=== PATIENT | female | born 1960 | race Caucasian/White ===

== ENCOUNTER 2016-12-15 23:09 | Inpatient (IN) | payer OTHER ==
[~2016-12-15] VITALS: Ht 165.1 cm; Wt 98.2 kg
[~2016-12-15 23:09] MED LIST: ADVAIR 250/501 DISK IH; ADVAIR HFA120 INHALA IH; CELEXA20 MG PO; CENTURY ULTIMA1 EAC3 PO; CRANBERRY 4001 EAC1 PO; DUONEB 2.5-0.5 M3 ML AEROSOL; GLIPIZIDE5 MG PO; GLUCOSAMINE1000 MG PO; LEVAQUIN750 MG PO; LISINOPRIL20 MG PO; METFORMIN HCL1000 MG PO; METOPROLOL SUCC50 MG PO; MONTELUKAST SOD10 MG PO; MUCINEX600 MG PO; NICODERM CQ1 EAC1 TD; PANTOPRAZOLE SO40 MG PO; PRAZOSIN HCL1 MG PO; PREDNISONE10 MG PO; PREDNISONE20 MG PO; TYLENOL REGULA325 MG PO; VENLAFAXINE HCL75 M3 PO; VENTOLIN HFA18 GM IH; ZESTORETIC 20-1 EAC2 PO
[2016-12-16 00:31] LABS: EOSINOPHIL (%) 1.4 % (0-5); EOSINOPHIL COUNT 0.1 K/uL (0-0.3); HEMATOCRIT 42.4 % (36.0-46.0); IMMATURE GRANULOCYTE (%) 0.2 % (0.0-0.7); IMMATURE GRANULOCYTE COUNT 0.1 K/uL; LYMPHOCYTE COUNT 1.4 K/uL (1.0-2.8); MCH 30.1 PG (29.0-34.0); MCHC 34.4 G/DL (30.0-36.0); MCV 87.4 FL (83-99); MEAN PLAT.VOLUME 10.8 uM^3 (9.5-12.4); MONOCYTE (%) 6.7 % (3-12); MONOCYTE COUNT 0.3 K/uL (0-0.8); NEUTROPHIL (%) 58.2 % (45-76); NEUTROPHIL COUNT 2.4 K/uL (1.8-6.4); PLATELET COUNT 51 K/uL (156-360); RBC DIS.WIDTH-CV 15.9 % (11.8-14.6); RBC DIS.WIDTH-SD 50.5 % (39-53); RED BLOOD COUNT 4.85 M/uL (3.80-5.20); WHITE BLOOD COUNT 4.2 K/uL (4.1-10.2)
[2016-12-16 00:46] LABS: CHLORIDE 110 mEq/L (99-109); POTASSIUM 3.4 mEq/L (3.7-5.4); SODIUM 145 mEq/L (136-147)
[2016-12-16 00:48] LABS: GLUCOSE 84 mg/dL (70-99)
[2016-12-16 00:49] LABS: ANION GAP 17 MEQ/L (2-14)
[2016-12-16 00:51] LABS: SERUM ETHYL ALCOHOL 186 mg/dL
[2016-12-16 00:52] LABS: GFR ESTIMATE (CALCULATED) > 59 mL/min/
[2016-12-16 00:54] LABS: UREA NITROGEN (BUN) 11 mg/dL (9-23)
[2016-12-16 00:55] LABS: SALICYLATE < 5.0 MG/DL (15-30)
[2016-12-16 04:58] LABS: CARBON DIOXIDE (BICARBONATE) 20.3 MEQ/L (20-31)
[2016-12-16 06:19] VITALS: BP 122/54
[2016-12-16 08:30] VITALS: BP 132/78
[2016-12-16 08:47] LABS: POINT-OF-CARE METER ID UU14174216; POINT-OF-CARE USER ID NUTSLF44
[2016-12-16] MEDS ORDERED: PROTONIX40 MG PO (11:07)
[2016-12-16 11:53] LABS: POINT-OF-CARE USER ID NUTSLF44
[2016-12-16 12:30] VITALS: BP 141/73
[2016-12-16 12:33] LABS: EOSINOPHIL (%) 1.3 % (0-5); HEMATOCRIT 38.6 % (36.0-46.0); IMMATURE GRANULOCYTE (%) 0.3 % (0.0-0.7); LYMPHOCYTE COUNT 0.9 K/uL (1.0-2.8); MCH 29.2 PG (29.0-34.0); MCHC 32.4 G/DL (30.0-36.0); MCV 90.2 FL (83-99); MEAN PLAT.VOLUME 11.3 uM^3 (9.5-12.4); MONOCYTE (%) 7.9 % (3-12); MONOCYTE COUNT 0.2 K/uL (0-0.8); NEUTROPHIL (%) 59.5 % (45-76); NEUTROPHIL COUNT 1.8 K/uL (1.8-6.4); NRBC (%) 0.7 /100 WBC (0-0); PLATELET COUNT 51 K/uL (156-360); RBC DIS.WIDTH-CV 16.3 % (11.8-14.6); RBC DIS.WIDTH-SD 53.5 % (39-53); RED BLOOD COUNT 4.28 M/uL (3.80-5.20)
[2016-12-16 12:37] LABS: ALKALINE PHOSPHATASE 90 IU/L (3-129); ANION GAP 13 MEQ/L (2-14); CHLORIDE 107 MEQ/L (99-109); GFR ESTIMATE (CALCULATED) > 59 mL/min/; GLUCOSE 97 mg/dL (70-99); MAGNESIUM 1.3 mg/dl (1.3-2.7); POTASSIUM 3.8 MEQ/L (3.7-5.4); SAMPLE HEMOLYSIS CHECK 0; SAMPLE ICTERIC CHECK 0; SAMPLE LIPEMIA CHECK 0; SODIUM 139 MEQ/L (136-147); TOTAL BILIRUBIN 0.7 MG/DL (0.0-1.0); UREA NITROGEN (BUN) 8 mg/dL (9-23)
[2016-12-16 16:52] LABS: POINT-OF-CARE METER ID UU13113698; POINT-OF-CARE USER ID NUTSLF44
[2016-12-16 19:19] VITALS: BP 178/86
[2016-12-16 23:15] VITALS: BP 121/71
[2016-12-17 03:54] VITALS: BP 164/93
[2016-12-17 07:08] LABS: EOSINOPHIL COUNT 0.1 K/uL (0-0.3); HEMATOCRIT 34.8 % (36.0-46.0); IMMATURE GRANULOCYTE (%) 0.6 % (0.0-0.7); LYMPHOCYTE COUNT 0.5 K/uL (1.0-2.8); MCH 29.6 PG (29.0-34.0); MCV 89.8 FL (83-99); MONOCYTE (%) 10.1 % (3-12); MONOCYTE COUNT 0.2 K/uL (0-0.8); NEUTROPHIL (%) 54.3 % (45-76); NEUTROPHIL COUNT 0.9 K/uL (1.8-6.4); RBC DIS.WIDTH-CV 15.7 % (11.8-14.6); RBC DIS.WIDTH-SD 51.3 % (39-53); RED BLOOD COUNT 3.88 M/uL (3.80-5.20)
[2016-12-17 07:11] LABS: WHITE BLOOD COUNT 1.7 K/uL (4.1-10.2)
[2016-12-17 07:17] LABS: PLAT.SUFFICIENCY DECREASED; PLATELET COUNT 36 K/uL (156-360); USER ID CL
[2016-12-17 07:20] LABS: ANION GAP 6 MEQ/L (2-14); CHLORIDE 107 MEQ/L (99-109); GFR ESTIMATE (CALCULATED) > 59 mL/min/; POTASSIUM 3.8 MEQ/L (3.7-5.4); SAMPLE HEMOLYSIS CHECK 0; SAMPLE ICTERIC CHECK 0; SAMPLE LIPEMIA CHECK 0; SODIUM 136 MEQ/L (136-147); UREA NITROGEN (BUN) 7 mg/dL (9-23)
[2016-12-17 07:22] LABS: GLUCOSE 229 mg/dL (70-99)
[2016-12-17 08:14] VITALS: BP 137/79
[2016-12-17 11:48] VITALS: BP 120/64
[2016-12-17 16:00] VITALS: BP 136/72
== END 2016-12-17 20:00 | disposition left against medical advice (07) | DRG 918 ==
LOC: EME → EDBD 23:09 → EME 23:09 → 4EAST 12-16 04:54 → EDOF 12-16 04:54 → 4EAST 12-16 04:54
PROVIDERS: Emergency Medicine; Family Medicine
DX: T38.3X2A Poisoning by insulin and oral hypoglycemic [antidiabetic] drugs, intentional self-harm, initial encounter (principal); E87.2 Acidosis; K74.60 Unspecified cirrhosis of liver; I10 Essential (primary) hypertension; J45.909 Unspecified asthma, uncomplicated; E11.9 Type 2 diabetes mellitus without complications; J44.9 Chronic obstructive pulmonary disease, unspecified; B19.20 Unspecified viral hepatitis C without hepatic coma; F10.19 Alcohol abuse with unspecified alcohol-induced disorder; Y90.6 Blood alcohol level of 120-199 mg/100 ml; F33.0 Major depressive disorder, recurrent, mild; F41.9 Anxiety disorder, unspecified; K58.9 Irritable bowel syndrome, unspecified; I34.1 Nonrheumatic mitral (valve) prolapse; F43.10 Post-traumatic stress disorder, unspecified; M19.90 Unspecified osteoarthritis, unspecified site; F17.210 Nicotine dependence, cigarettes, uncomplicated
CPT/HCPCS: 80048; 80053; 81003; 82803; 82948; 83605; 83735; 85025; 85025 91; 87040; 94640; 94640 76; 99202; 99281; 99285; C9113; G0480; J0696; J1650; J1815; J2405; J7030; J7050

== ENCOUNTER 2016-12-18 04:29 | Emergency (ER) | payer OTHER ==
[~2016-12-18] VITALS: Ht 167.6 cm; Wt 96.2 kg
[~2016-12-18 04:29] MED LIST changes: +PROTONIX40 MG PO
[2016-12-18 05:45] LABS: CHLORIDE 109 mEq/L (99-109); POTASSIUM 3.5 mEq/L (3.7-5.4); SODIUM 139 mEq/L (136-147)
[2016-12-18 05:47] LABS: GLUCOSE 149 mg/dL (70-99)
[2016-12-18 05:49] LABS: ANION GAP 8 MEQ/L (2-14)
[2016-12-18 05:55] LABS: EOSINOPHIL (%) 2.5 % (0-5); EOSINOPHIL COUNT 0.1 K/uL (0-0.3); HEMATOCRIT 36.9 % (36.0-46.0); LYMPHOCYTE COUNT 0.6 K/uL (1.0-2.8); MCH 29.4 PG (29.0-34.0); MCHC 33.9 G/DL (30.0-36.0); MCV 86.8 FL (83-99); MONOCYTE (%) 8.4 % (3-12); MONOCYTE COUNT 0.2 K/uL (0-0.8); NEUTROPHIL COUNT 1.2 K/uL (1.8-6.4); RBC DIS.WIDTH-CV 15.5 % (11.8-14.6); RBC DIS.WIDTH-SD 48.4 % (39-53); RED BLOOD COUNT 4.25 M/uL (3.80-5.20)
[2016-12-18 05:57] LABS: MEAN PLAT.VOLUME 10.6 uM^3 (9.5-12.4); PLATELET COUNT 52 K/uL (156-360)
[2016-12-18 06:18] LABS: TOTAL BILIRUBIN 0.5 mg/dL (0.0-1.0)
[2016-12-18 06:20] LABS: ALKALINE PHOSPHATASE 103 IU/L (3-129); GFR ESTIMATE (CALCULATED) > 59 mL/min/
[2016-12-18 06:21] LABS: UREA NITROGEN (BUN) 7 mg/dL (9-23)
[2016-12-18 06:22] LABS: DIRECT BILIRUBIN 0.3 mg/dL (0.0-0.3)
[2016-12-18 06:32] LABS: SERUM ETHYL ALCOHOL 12 mg/dL
[2016-12-18 07:12] VITALS: BP 157/94
== END 2016-12-18 07:14 | disposition home or self-care (01) ==
LOC: EME 04:29
DX: R53.1 Weakness (principal); D70.9 Neutropenia, unspecified; E11.9 Type 2 diabetes mellitus without complications; Z79.84 Long term (current) use of oral hypoglycemic drugs; J44.9 Chronic obstructive pulmonary disease, unspecified; K74.60 Unspecified cirrhosis of liver; B18.2 Chronic viral hepatitis C; F17.200 Nicotine dependence, unspecified, uncomplicated
CPT/HCPCS: 80048; 80076; 85025; 85027; 99281; 99285; G0480; J7644

== ENCOUNTER 2017-11-07 20:57 | Inpatient (IN) | payer OTHER ==
[~2017-11-07] VITALS: Ht 170.2 cm; Wt 88.3 kg
[2017-11-08 00:37] LABS: EOSINOPHIL (%) 1.6 % (0-5); HEMATOCRIT 38.3 % (36.0-46.0); IMMATURE GRANULOCYTE (%) 0.4 % (0.0-0.7); INSTRUMENT ABS NEUTROPHIL CT 1.6 K/uL; LYMPHOCYTE COUNT 0.7 K/uL (1.0-2.8); MCH 30.5 PG (29.0-34.0); MCHC 33.2 G/DL (30.0-36.0); MCV 91.8 FL (83-99); MONOCYTE (%) 6.1 % (3-12); MONOCYTE COUNT 0.2 K/uL (0-0.8); NEUTROPHIL (%) 64.6 % (45-76); NEUTROPHIL COUNT 1.6 K/uL (1.8-6.4); RBC DIS.WIDTH-CV 15.1 % (11.8-14.6); RBC DIS.WIDTH-SD 51.4 % (39-53); RED BLOOD COUNT 4.17 M/uL (3.80-5.20); WHITE BLOOD COUNT 2.5 K/uL (4.1-10.2)
[2017-11-08 00:47] LABS: CHLORIDE 111 mEq/L (99-109); POTASSIUM 3.9 mEq/L (3.7-5.4); SODIUM 141 mEq/L (136-147)
[2017-11-08 00:48] LABS: MAGNESIUM 1.7 mg/dL (1.3-2.7)
[2017-11-08 00:49] LABS: GLUCOSE 96 mg/dL (70-99)
[2017-11-08 00:50] LABS: ANION GAP 8 MEQ/L (2-14)
[2017-11-08 00:51] LABS: TOTAL BILIRUBIN 0.5 mg/dL (0.0-1.0)
[2017-11-08 00:52] LABS: SERUM ETHYL ALCOHOL 63 mg/dL
[2017-11-08 00:53] LABS: GFR ESTIMATE (CALCULATED) > 59 mL/min/
[2017-11-08 00:54] LABS: ALKALINE PHOSPHATASE 71 IU/L (3-129)
[2017-11-08 00:55] LABS: UREA NITROGEN (BUN) 7 mg/dL (9-23)
[2017-11-08 00:56] LABS: SALICYLATE < 5.0 MG/DL (15-30)
[2017-11-08 01:19] LABS: HEMATOLOGY COMMENT 1 SN; IMM.PLATELET FRACTION 3.7 (1-7); PLAT.SUFFICIENCY DECREASED; PLATELET COUNT UNABLE TO REPORT K/uL (156-360)
[2017-11-08 05:05] LABS: ADD MIUA? YES; BILIRUBIN NEGATIVE; BLOOD NEGATIVE; COLOR YELLOW ((YELLOW)); GLUCOSE (STRIP) NEGATIVE; KETONES NEGATIVE; LEUKOCYTES LARGE; NITRITE POSITIVE; PROTEIN (STRIP) NEGATIVE; SPECIFIC GRAVITY 1.015 (1.000-1.030)
[2017-11-08 05:09] LABS: BACTERIA 2+ /HPF; EPITHELIAL CELLS RARE /HPF; MUCUS TRACE /LPF; UCUL ADDED? YES; WHITE BLOOD CELLS TNTC /HPF (0-5)
[2017-11-08 05:14] LABS: ADD MEDTOX COMMENT Y; AMPHETAMINE NEGATIVE (500 ng/mL); BARBITURATES NEGATIVE (200 ng/mL); BENZODIAZEPINES PRESUMPTIVE POSITIVE (150 ng/mL); COCAINE NEGATIVE (150 ng/mL); INTERNAL CONTROLS VALID? YES; METHADONE NEGATIVE (200 ng/mL); METHAMPHETAMINE NEGATIVE (500 ng/mL); OPIATES (MORPHINE) NEGATIVE (100 ng/mL); OXYCODONE NEGATIVE (100 ng/mL); PHENCYCLIDINE NEGATIVE (25 ng/mL); PROPOXYPHENE NEGATIVE (300 ng/mL); THC CANNABINOIDS PRESUMPTIVE POSITIVE (50 ng/mL); TRICYCLIC ANTIDEPRESSANTS NEGATIVE (300 ng/mL)
[2017-11-08 05:32] VITALS: BP 162/86
[2017-11-08 06:35] LABS: BENZODIAZEPINES QUANT VALUE 0 NG/ML; BENZODIAZEPINES, URINE SCREEN Negative (200 ng/mL)
[2017-11-09 06:48] LABS: POINT-OF-CARE METER ID UU13113830; POINT-OF-CARE USER ID ENVTLS63
[2017-11-10 06:24] LABS: POINT-OF-CARE METER ID UU13113830
[2017-11-10 07:55] VITALS: BP 114/55
[2017-11-10 16:16] VITALS: BP 118/66
[2017-11-11 06:14] LABS: POINT-OF-CARE METER ID UU13113830
[2017-11-11 07:38] VITALS: BP 101/59
[2017-11-11 15:40] VITALS: BP 117/68
[2017-11-12 06:10] LABS: POINT-OF-CARE METER ID UU13113830; POINT-OF-CARE USER ID BHSSMG
[2017-11-12 07:46] VITALS: BP 101/55
[2017-11-12 15:14] VITALS: BP 107/61
[2017-11-12 17:04] LABS: EOSINOPHIL COUNT 0.1 K/uL (0-0.3); HEMATOCRIT 32.6 % (36.0-46.0); INSTRUMENT ABS NEUTROPHIL CT 1.3 K/uL; LYMPHOCYTE COUNT 0.5 K/uL (1.0-2.8); MCH 30.5 PG (29.0-34.0); MCHC 32.5 G/DL (30.0-36.0); MCV 93.9 FL (83-99); MONOCYTE (%) 9.5 % (3-12); MONOCYTE COUNT 0.2 K/uL (0-0.8); NEUTROPHIL (%) 63.1 % (45-76); NEUTROPHIL COUNT 1.3 K/uL (1.8-6.4); RBC DIS.WIDTH-CV 14.8 % (11.8-14.6); RBC DIS.WIDTH-SD 50.9 % (39-53); RED BLOOD COUNT 3.47 M/uL (3.80-5.20)
[2017-11-12 17:06] LABS: INTER. NORMALIZED RATIO 1.2; PROTHROMBIN TIME 13.4 SEC (10.2-12.9)
[2017-11-12 17:07] LABS: ANION GAP 8 MEQ/L (2-14); CHLORIDE 105 MEQ/L (99-109); SAMPLE HEMOLYSIS CHECK 0; SAMPLE ICTERIC CHECK 0; SAMPLE LIPEMIA CHECK 0; SODIUM 139 MEQ/L (136-147); TOTAL BILIRUBIN 0.7 MG/DL (0.0-1.0)
[2017-11-12 17:09] LABS: PTT 31.3 SEC (25-37)
[2017-11-12 17:13] LABS: ALKALINE PHOSPHATASE 61 IU/L (3-129); GFR ESTIMATE (CALCULATED) > 59 mL/min/; GLUCOSE 143 mg/dL (70-99); UREA NITROGEN (BUN) 8 mg/dL (9-23)
[2017-11-12 17:24] LABS: HEMATOLOGY COMMENT 1 SN; IMM.PLATELET FRACTION 3.7 (1-7); MEAN PLAT.VOLUME 10.7 uM^3 (9.5-12.4); PLAT.SUFFICIENCY DECREASED
[2017-11-12 17:25] LABS: PLATELET COUNT 44 K/uL (156-360)
[2017-11-12 18:59] LABS: Estimated Average Glucose 137 mg/dL (70-123); HEMOGLOBIN A1c (GLYCOHEMOGLOB) 6.4 % HGB (Below 5.7)
[2017-11-13 06:05] LABS: POINT-OF-CARE METER ID UU13113830; POINT-OF-CARE USER ID ENVTLS63
[2017-11-13 07:39] VITALS: BP 146/81
[2017-11-13] MEDS ORDERED: BUPROPION HCL100 M1 PO (08:51)
[2017-11-13 09:03] VITALS: BP 146/81
[2017-11-13] MEDS ORDERED: PERCOCET 5/31 TABLET PO (13:16)
[2017-11-13] MEDS ORDERED: ZOFRAN4 MG PO (13:16)
[2017-11-13] MEDS ORDERED: TORADOL30 MG/ML IM (13:17)
[2017-11-14] MEDS ORDERED: LOVENOX40 MG/0.4 SC (08:56)
[2017-11-14] MEDS ORDERED: HYDROCODON-ACE1 EAC7 PO (08:56)
== END 2017-11-13 11:55 | DRG 881 ==
LOC: EME → EDBD 20:57 → 1WEST 11-08 03:53 → EDOF 11-08 03:53 → ENRESERV 11-08 04:41 → 1WEST 11-08 05:24
PROVIDERS: Emergency Medicine; Internal Medicine; Psychiatry & Neurology Psychiatry
DX: F43.21 Adjustment disorder with depressed mood (principal); R45.851 Suicidal ideations; F33.2 Major depressive disorder, recurrent severe without psychotic features; S82.842A Displaced bimalleolar fracture of left lower leg, initial encounter for closed fracture; S09.90XA Unspecified injury of head, initial encounter; W10.1XXA Fall (on)(from) sidewalk curb, initial encounter; F41.9 Anxiety disorder, unspecified; F60.9 Personality disorder, unspecified; F10.229 Alcohol dependence with intoxication, unspecified; Y90.3 Blood alcohol level of 60-79 mg/100 ml; D61.818 Other pancytopenia; B18.2 Chronic viral hepatitis C; K76.6 Portal hypertension; K74.60 Unspecified cirrhosis of liver; I85.10 Secondary esophageal varices without bleeding; E11.9 Type 2 diabetes mellitus without complications; I34.1 Nonrheumatic mitral (valve) prolapse; J43.9 Emphysema, unspecified; I10 Essential (primary) hypertension; R82.71 Bacteriuria; Z22.39 Carrier of other specified bacterial diseases; K21.9 Gastro-esophageal reflux disease without esophagitis; G47.33 Obstructive sleep apnea (adult) (pediatric); R47.81 Slurred speech; Z87.01 Personal history of pneumonia (recurrent); F17.210 Nicotine dependence, cigarettes, uncomplicated
CPT/HCPCS: 70450; 73610; 80053; 81003; 82607; 82746; 82948; 83036; 83735; 84443; 84999; 85025; 85610; 85730; 86850; 86900; 86901; 87077; 87086; 87186; 90839; 94640; 94640 76; 97150 GO; 97165 GO; 99202; 99281; 99285; G0480; J0131; J1100; J1170; J1630; J1885; J2060; J2250; J2405; J3010; P9035

== ENCOUNTER 2017-11-13 12:30 | Inpatient (IN) | payer OTHER ==
[~2017-11-13] VITALS: Ht 170.2 cm; Wt 90.9 kg
[~2017-11-13 12:30] MED LIST changes: +BUPROPION HCL100 M1 PO
[2017-11-13 12:44] VITALS: BP 133/81
[2017-11-13] MEDS ORDERED: ZOFRAN4 MG PO (13:16)
[2017-11-13] MEDS ORDERED: PERCOCET 5/31 TABLET PO (13:16)
[2017-11-13] MEDS ORDERED: TORADOL30 MG/ML IM (13:17)
[2017-11-13 23:03] VITALS: BP 126/71
[2017-11-14 04:07] VITALS: BP 123/71
[2017-11-14 08:23] VITALS: BP 110/60
[2017-11-14] MEDS ORDERED: LOVENOX40 MG/0.4 SC (08:56)
[2017-11-14] MEDS ORDERED: HYDROCODON-ACE1 EAC7 PO (08:56)
[2017-11-14 11:41] VITALS: BP 122/78
[2017-11-14 16:10] VITALS: BP 122/69
[2017-11-14 23:18] VITALS: BP 129/73
[2017-11-15 15:41] VITALS: BP 139/82
[2017-11-15 23:03] VITALS: BP 122/64
[2017-11-16 08:30] VITALS: BP 140/88
[2017-11-16 17:14] VITALS: BP 138/76
[2017-11-16 23:05] VITALS: BP 118/72
[2017-11-17 08:23] VITALS: BP 116/73
[2017-11-18 00:13] VITALS: BP 121/76
[2017-11-18 08:36] VITALS: BP 136/85
[2017-11-18 16:02] VITALS: BP 133/84
[2017-11-19 00:03] VITALS: BP 134/66
[2017-11-19 07:51] VITALS: BP 131/75
[2017-11-19 11:13] VITALS: BP 122/66
[2017-11-19 16:06] VITALS: BP 123/74
[2017-11-19 23:31] VITALS: BP 132/64
[2017-11-20 08:11] VITALS: BP 116/62
[2017-11-20 09:53] LABS: HEMATOCRIT 33.4 % (36.0-46.0); HEMOGLOBIN 10.8 G/DL (11.9-15.5); MCH 29.4 PG (29.0-34.0); MCHC 32.3 G/DL (30.0-36.0); RBC DIS.WIDTH-CV 14.4 % (11.8-14.6); RBC DIS.WIDTH-SD 48.2 % (39-53); RED BLOOD COUNT 3.67 M/uL (3.80-5.20)
[2017-11-20 09:54] LABS: PLATELET COUNT 67 K/uL (156-360)
[2017-11-20 09:55] LABS: WHITE BLOOD COUNT 1.8 K/uL (4.1-10.2)
[2017-11-20 10:00] LABS: CHLORIDE 108 MEQ/L (99-109); CREATININE 0.5 MG/DL (0.6-1.3); GFR ESTIMATE (CALCULATED) > 59 mL/min/; GLUCOSE 114 mg/dL (70-99); POTASSIUM 4.1 MEQ/L (3.7-5.4); SODIUM 139 MEQ/L (136-147); UREA NITROGEN (BUN) 12 mg/dL (9-23)
[2017-11-20 11:43] VITALS: BP 130/75
[2017-11-20 18:27] VITALS: BP 166/73
[2017-11-20 20:22] VITALS: BP 142/90
[2017-11-21 00:12] VITALS: BP 128/60
[2017-11-21 04:15] VITALS: BP 131/70
[2017-11-21 07:28] VITALS: BP 120/62
[2017-11-21 11:31] VITALS: BP 129/72
[2017-11-21 15:00] VITALS: BP 122/66
== END 2017-11-21 15:49 | DRG 494 ==
LOC: SDC 12:30 → ENRESERV 15:47 → 2SOUTH 15:55 → 3EAST 15:55 → ENRESERV 16:35 → 3EAST 17:40
PROVIDERS: Orthopaedic Surgery; Physician Assistant
DX: S82.852A Displaced trimalleolar fracture of left lower leg, initial encounter for closed fracture (principal); D69.6 Thrombocytopenia, unspecified; M81.0 Age-related osteoporosis without current pathological fracture; F32.9 Major depressive disorder, single episode, unspecified; K74.60 Unspecified cirrhosis of liver; B18.2 Chronic viral hepatitis C; I10 Essential (primary) hypertension; K21.9 Gastro-esophageal reflux disease without esophagitis; I34.1 Nonrheumatic mitral (valve) prolapse; W10.9XXA Fall (on) (from) unspecified stairs and steps, initial encounter; F17.200 Nicotine dependence, unspecified, uncomplicated; F10.20 Alcohol dependence, uncomplicated; J44.9 Chronic obstructive pulmonary disease, unspecified; E11.9 Type 2 diabetes mellitus without complications
CPT/HCPCS: 73600; 73610; 76000; 80048; 82948; 85027; 86850; 86900; 86901; 86965; 94640; 94640 76; C1713; J0131; J0330; J0690; J1100; J1170; J1650; J1815; J2405; J2765; J3010; P9035

== ENCOUNTER 2018-01-04 18:38 | Inpatient (IN) | payer OTHER ==
[~2018-01-04] VITALS: Ht 180.3 cm; Wt 99.3 kg
[~2018-01-04 18:38] MED LIST changes: +HYDROCODON-ACE1 EAC7 PO; +LOVENOX40 MG/0.4 SC; +PERCOCET 5/31 TABLET PO; +TORADOL30 MG/ML IM; +ZOFRAN4 MG PO
[2018-01-04 19:32] LABS: HEMOGLOBIN 12.5 G/DL (11.9-15.5); MCH 27.4 PG (29.0-34.0); MCHC 31.3 G/DL (30.0-36.0); MCV 87.7 FL (83-99); PLATELET COUNT 58 K/uL (156-360); RBC DIS.WIDTH-CV 14.5 % (11.8-14.6); RBC DIS.WIDTH-SD 46.2 % (39-53); RED BLOOD COUNT 4.56 M/uL (3.80-5.20); WHITE BLOOD COUNT 3.6 K/uL (4.1-10.2)
[2018-01-04 19:42] LABS: CHLORIDE 108 mEq/L (99-109); POTASSIUM 3.7 mEq/L (3.7-5.4); SODIUM 138 mEq/L (136-147)
[2018-01-04 19:44] LABS: GLUCOSE 129 mg/dL (70-99); TOTAL PROTEIN 7.4 g/dL (6.4-8.3)
[2018-01-04 19:46] LABS: TOTAL BILIRUBIN 0.8 mg/dL (0.0-1.0)
[2018-01-04 19:48] LABS: ALKALINE PHOSPHATASE 126 IU/L (3-129); CREATININE 0.7 mg/dL (0.6-1.3); GFR ESTIMATE (CALCULATED) > 59 mL/min/
[2018-01-04 19:49] LABS: UREA NITROGEN (BUN) 10 mg/dL (9-23)
[2018-01-04 19:50] LABS: AST (GOT) 57 IU/L (2-34)
[2018-01-04 19:51] LABS: ALT (GPT) 102 IU/L (3-49); LIPASE 26 U/L (1.0-51.0)
[2018-01-04 20:42] LABS: DIRECT BILIRUBIN 0.4 mg/dL (0.0-0.3)
[2018-01-04 23:46] LABS: INTER. NORMALIZED RATIO 1.2
[2018-01-04] MEDS ORDERED: ADVAIR HFA120 INHAL1 IH (23:46)
[2018-01-04] MEDS ORDERED: ESTER-C 1,0001 EACH PO (23:47)
[2018-01-04 23:49] LABS: PTT 31.3 SEC (25-37)
[2018-01-05 01:53] LABS: APPEARANCE CLEAR ((CLEAR)); BILIRUBIN NEGATIVE; BLOOD NEGATIVE; COLOR YELLOW ((YELLOW)); GLUCOSE (STRIP) NEGATIVE; KETONES NEGATIVE; LEUKOCYTES NEGATIVE; NITRITE NEGATIVE; PROTEIN (STRIP) NEGATIVE
[2018-01-05 02:05] VITALS: BP 118/74
[2018-01-05 02:05] LABS: CREATINE KINASE 98 IU/L (1-294)
[2018-01-05 07:15] LABS: BASOPHIL (%) 0.4 % (0-1); EOSINOPHIL (%) 2.1 % (0-5); EOSINOPHIL COUNT 0.1 K/uL (0-0.3); HEMATOCRIT 33.4 % (36.0-46.0); IMMATURE GRANULOCYTE (%) 0.4 % (0.0-0.7); LYMPHOCYTE COUNT 0.5 K/uL (1.0-2.8); MCH 27.9 PG (29.0-34.0); MCHC 31.4 G/DL (30.0-36.0); MCV 88.8 FL (83-99); MONOCYTE (%) 10.2 % (3-12); MONOCYTE COUNT 0.2 K/uL (0-0.8); NEUTROPHIL (%) 63.9 % (45-76); NEUTROPHIL COUNT 1.5 K/uL (1.8-6.4); RBC DIS.WIDTH-CV 14.6 % (11.8-14.6); RBC DIS.WIDTH-SD 46.7 % (39-53); RED BLOOD COUNT 3.76 M/uL (3.80-5.20); WHITE BLOOD COUNT 2.4 K/uL (4.1-10.2)
[2018-01-05 07:17] LABS: INTER. NORMALIZED RATIO 1.3
[2018-01-05 07:19] LABS: HEMOGLOBIN 10.5 G/DL (11.9-15.5)
[2018-01-05 07:21] LABS: PTT 30.8 SEC (25-37)
[2018-01-05 07:33] LABS: IMM.PLATELET FRACTION 3.8 (1-7); PLAT.SUFFICIENCY DECREASED; PLATELET COUNT 41 K/uL (156-360)
[2018-01-05 07:47] LABS: ALBUMIN 3.1 G/DL (3.2-4.8); ALKALINE PHOSPHATASE 80 IU/L (3-129); ALT (GPT) 63 IU/L (3-49); AST (GOT) 42 IU/L (2-34); CHLORIDE 109 MEQ/L (99-109); CREATININE 0.7 MG/DL (0.6-1.3); GFR ESTIMATE (CALCULATED) > 59 mL/min/; GLUCOSE 187 mg/dL (70-99); POTASSIUM 4.3 MEQ/L (3.7-5.4); SODIUM 138 MEQ/L (136-147); TOTAL BILIRUBIN 0.8 MG/DL (0.0-1.0); TOTAL PROTEIN 5.3 G/DL (6.4-8.3); UREA NITROGEN (BUN) 11 mg/dL (9-23)
[2018-01-05 11:33] VITALS: BP 111/75
[2018-01-05 16:11] VITALS: BP 100/57
[2018-01-05 19:34] VITALS: BP 101/57
[2018-01-05 23:45] VITALS: BP 103/52
[2018-01-06] VITALS (7 sets, daily range): BP systolic 102–139; BP diastolic 50–89
[2018-01-06 06:52] LABS: HEMATOCRIT 36.2 % (36.0-46.0); HEMOGLOBIN 11.5 G/DL (11.9-15.5); MCH 28.1 PG (29.0-34.0); MCHC 31.8 G/DL (30.0-36.0); MCV 88.5 FL (83-99); RBC DIS.WIDTH-CV 14.7 % (11.8-14.6); RBC DIS.WIDTH-SD 47.6 % (39-53); RED BLOOD COUNT 4.09 M/uL (3.80-5.20)
[2018-01-06 07:12] LABS: ALBUMIN 3.3 G/DL (3.2-4.8); ALKALINE PHOSPHATASE 81 IU/L (3-129); ALT (GPT) 69 IU/L (3-49); AST (GOT) 45 IU/L (2-34); CHLORIDE 105 MEQ/L (99-109); CREATININE 0.7 MG/DL (0.6-1.3); GFR ESTIMATE (CALCULATED) > 59 mL/min/; GLUCOSE 165 mg/dL (70-99); POTASSIUM 4.1 MEQ/L (3.7-5.4); SODIUM 135 MEQ/L (136-147); TOTAL BILIRUBIN 0.8 MG/DL (0.0-1.0); UREA NITROGEN (BUN) 10 mg/dL (9-23)
[2018-01-06 07:31] LABS: IMM.PLATELET FRACTION 3.7 (1-7); PLAT.SUFFICIENCY DECREASED; PLATELET COUNT 41 K/uL (156-360)
[2018-01-07 06:37] LABS: BASOPHIL (%) 0.4 % (0-1); EOSINOPHIL (%) 4.3 % (0-5); EOSINOPHIL COUNT 0.1 K/uL (0-0.3); HEMATOCRIT 34.8 % (36.0-46.0); HEMOGLOBIN 10.9 G/DL (11.9-15.5); LYMPHOCYTE (%) 19.7 % (15-42); LYMPHOCYTE COUNT 0.5 K/uL (1.0-2.8); MCH 27.3 PG (29.0-34.0); MCHC 31.3 G/DL (30.0-36.0); MCV 87.2 FL (83-99); MONOCYTE (%) 9.9 % (3-12); MONOCYTE COUNT 0.2 K/uL (0-0.8); NEUTROPHIL (%) 65.7 % (45-76); NEUTROPHIL COUNT 1.5 K/uL (1.8-6.4); RBC DIS.WIDTH-CV 14.7 % (11.8-14.6); RBC DIS.WIDTH-SD 47.5 % (39-53); RED BLOOD COUNT 3.99 M/uL (3.80-5.20); WHITE BLOOD COUNT 2.3 K/uL (4.1-10.2)
[2018-01-07 07:03] LABS: CHLORIDE 103 MEQ/L (99-109); CREATININE 0.6 MG/DL (0.6-1.3); GFR ESTIMATE (CALCULATED) > 59 mL/min/; GLUCOSE 152 mg/dL (70-99); POTASSIUM 4.2 MEQ/L (3.7-5.4); SODIUM 138 MEQ/L (136-147); UREA NITROGEN (BUN) 9 mg/dL (9-23)
[2018-01-07 07:33] LABS: IMM.PLATELET FRACTION 4.9 (1-7); PLAT.SUFFICIENCY DECREASED; PLATELET COUNT 43 K/uL (156-360)
[2018-01-07 07:35] VITALS: BP 110/59
[2018-01-07 16:27] VITALS: BP 107/67
[2018-01-08 07:25] VITALS: BP 118/70
[2018-01-08 15:00] VITALS: BP 122/80
[2018-01-09 07:42] VITALS: BP 116/63
[2018-01-09] MEDS ORDERED: ALDACTONE100 MG PO (08:56)
[2018-01-09] MEDS ORDERED: XIFAXAN550 MG PO (08:56)
[2018-01-09] MEDS ORDERED: FUROSEMIDE40 MG PO (08:56)
[2018-01-09] MEDS ORDERED: NADOLOL40 MG PO (08:56)
[2018-01-09] MEDS ORDERED: METFORMIN HCL1000 MG PO (08:56)
[2018-01-09] MEDS ORDERED: LACTULOSE10 GM/151 PO (09:02)
[2018-01-09] MEDS ORDERED: DUONEB 2.5-0.5 M3 ML AEROSOL (11:59)
[2018-01-09] MEDS ORDERED: ADVAIR HFA120 INHAL1 IH (11:59)
== END 2018-01-09 15:25 | disposition home or self-care (01) | DRG 432 ==
LOC: EXP 18:38 → EME 18:38 → 5EAST 01-05 00:40 → EDOF 01-05 00:40 → ENRESERV 01-05 00:47 → 5EAST 01-05 01:53
PROVIDERS: Hospitalist; Nurse Practitioner Family; Student in an Organized Health Care Education/Training Program
DX: K70.31 Alcoholic cirrhosis of liver with ascites (principal); I81 Portal vein thrombosis; J44.9 Chronic obstructive pulmonary disease, unspecified; K72.90 Hepatic failure, unspecified without coma; K76.6 Portal hypertension; B18.2 Chronic viral hepatitis C; K57.30 Diverticulosis of large intestine without perforation or abscess without bleeding; S82.852D Displaced trimalleolar fracture of left lower leg, subsequent encounter for closed fracture with routine healing; K21.0 Gastro-esophageal reflux disease with esophagitis; I85.10 Secondary esophageal varices without bleeding; T36.1X5A Adverse effect of cephalosporins and other beta-lactam antibiotics, initial encounter; E11.9 Type 2 diabetes mellitus without complications; D61.818 Other pancytopenia; I10 Essential (primary) hypertension; K42.9 Umbilical hernia without obstruction or gangrene; E77.8 Other disorders of glycoprotein metabolism; G89.29 Other chronic pain; F10.21 Alcohol dependence, in remission; I34.1 Nonrheumatic mitral (valve) prolapse; F32.9 Major depressive disorder, single episode, unspecified; F17.210 Nicotine dependence, cigarettes, uncomplicated; M19.079 Primary osteoarthritis, unspecified ankle and foot; K59.00 Constipation, unspecified; Z59.0 Homelessness; Z99.3 Dependence on wheelchair; Z91.19 Patient's noncompliance with other medical treatment and regimen; Z91.14 Patient's other noncompliance with medication regimen; Z83.3 Family history of diabetes mellitus; Z68.30 Body mass index [BMI] 30.0-30.9, adult
CPT/HCPCS: 71275; 73610; 74177; 80048; 80053; 81003; 82140; 82248; 82550; 82948; 83605; 83690; 85025; 85027; 85610; 85730; 90686; 94640; 94640 76; 94760; 99202; 99281; 99285; J1170; J1200; J1815; J2270; J2405; J3010; J7120

== ENCOUNTER 2018-01-14 21:33 | Emergency (ER) | payer OTHER ==
[~2018-01-14] VITALS: Ht 167.6 cm; Wt 90.0 kg
[~2018-01-14 21:33] MED LIST changes: +ADVAIR HFA120 INHAL1 IH; +ALDACTONE100 MG PO; +ESTER-C 1,0001 EACH PO; +FUROSEMIDE40 MG PO; +LACTULOSE10 GM/151 PO; +NADOLOL40 MG PO; +XIFAXAN550 MG PO
[2018-01-14 21:51] LABS: HEMATOCRIT 39.1 % (36.0-46.0); HEMOGLOBIN 12.8 G/DL (11.9-15.5); MCH 27.3 PG (29.0-34.0); MCHC 32.7 G/DL (30.0-36.0); MCV 83.4 FL (83-99); RBC DIS.WIDTH-CV 14.9 % (11.8-14.6); RBC DIS.WIDTH-SD 45.2 % (39-53); RED BLOOD COUNT 4.69 M/uL (3.80-5.20); WHITE BLOOD COUNT 6.3 K/uL (4.1-10.2)
[2018-01-14 21:55] LABS: PLATELET COUNT 73 K/uL (156-360)
[2018-01-14 22:14] LABS: CHLORIDE 103 MEQ/L (99-109); CREATININE 0.8 MG/DL (0.6-1.3); GFR ESTIMATE (CALCULATED) > 59 mL/min/; GLUCOSE 161 mg/dL (70-99); SODIUM 131 MEQ/L (136-147); UREA NITROGEN (BUN) 15 mg/dL (9-23)
[2018-01-15] MEDS ORDERED: PROVENTIL HFA6.7 GM IH (01:55)
[2018-01-15] MEDS ORDERED: SPACE CHAMBER1 EACH MC (01:55)
[2018-01-15] MEDS ORDERED: PREDNISONE20 MG PO (01:56)
[2018-01-15 02:17] VITALS: BP 104/67
== END 2018-01-15 02:18 | disposition home or self-care (01) ==
LOC: EME 21:33
PROVIDERS: Emergency Medicine Emergency Medical Services
DX: J44.1 Chronic obstructive pulmonary disease with (acute) exacerbation (principal); J06.9 Acute upper respiratory infection, unspecified; E11.9 Type 2 diabetes mellitus without complications; B19.20 Unspecified viral hepatitis C without hepatic coma; K74.60 Unspecified cirrhosis of liver; I34.1 Nonrheumatic mitral (valve) prolapse; F41.9 Anxiety disorder, unspecified; F17.200 Nicotine dependence, unspecified, uncomplicated; Z88.5 Allergy status to narcotic agent; Z88.6 Allergy status to analgesic agent
CPT/HCPCS: 71045; 80048; 85027; 94644; 99281; 99285; J1100; J3475; J7040; J7644

== ENCOUNTER 2018-01-22 16:58 | Inpatient (IN) | payer OTHER ==
[~2018-01-22] VITALS: Ht 167.6 cm; Wt 69.5 kg
[~2018-01-22 16:58] MED LIST changes: +PROVENTIL HFA6.7 GM IH; +SPACE CHAMBER1 EACH MC
[2018-01-22 17:40] LABS: BASOPHIL (%) 0.2 % (0-1); EOSINOPHIL (%) 0.1 % (0-5); HEMATOCRIT 38.6 % (36.0-46.0); HEMOGLOBIN 13.1 G/DL (11.9-15.5); IMMATURE GRANULOCYTE (%) 1.3 % (0.0-0.7); LYMPHOCYTE COUNT 0.7 K/uL (1.0-2.8); MCH 27.5 PG (29.0-34.0); MCHC 33.9 G/DL (30.0-36.0); MCV 81.1 FL (83-99); MONOCYTE (%) 6.6 % (3-12); MONOCYTE COUNT 0.8 K/uL (0-0.8); NEUTROPHIL (%) 85.8 % (45-76); NEUTROPHIL COUNT 9.7 K/uL (1.8-6.4); PLATELET COUNT 86 K/uL (156-360); RBC DIS.WIDTH-CV 14.6 % (11.8-14.6); RBC DIS.WIDTH-SD 42.7 % (39-53); RED BLOOD COUNT 4.76 M/uL (3.80-5.20); WHITE BLOOD COUNT 11.3 K/uL (4.1-10.2)
[2018-01-22 17:50] LABS: ALBUMIN 3.2 g/dL (3.2-4.8); CHLORIDE 98 mEq/L (99-109); POTASSIUM 4.5 mEq/L (3.7-5.4); SODIUM 128 mEq/L (136-147)
[2018-01-22 17:51] LABS: MAGNESIUM 1.7 mg/dL (1.3-2.7)
[2018-01-22 17:53] LABS: GLUCOSE 281 mg/dL (70-99); TOTAL PROTEIN 7.1 g/dL (6.4-8.3)
[2018-01-22 17:55] LABS: TOTAL BILIRUBIN 1.8 mg/dL (0.0-1.0)
[2018-01-22 17:56] LABS: ALKALINE PHOSPHATASE 93 IU/L (3-129); CREATININE 0.8 mg/dL (0.6-1.3); GFR ESTIMATE (CALCULATED) > 59 mL/min/
[2018-01-22 17:57] LABS: INTER. NORMALIZED RATIO 1.4
[2018-01-22 17:58] LABS: AST (GOT) 17 IU/L (2-34); UREA NITROGEN (BUN) 11 mg/dL (9-23)
[2018-01-22 17:59] LABS: ALT (GPT) 30 IU/L (3-49); PTT 24.9 SEC (25-37)
[2018-01-22 18:00] LABS: LIPASE 37 U/L (1.0-51.0)
[2018-01-22 18:01] LABS: TROP-I INTERPRETATION NEGATIVE; TROPONIN-I < 0.01 ng/mL (0.0-0.30)
[2018-01-22] MEDS ORDERED: WELLBUTRIN SR100 MG PO (19:39)
[2018-01-22] MEDS ORDERED: ALDACTONE100 MG PO (19:40)
[2018-01-22] MEDS ORDERED: LASIX40 MG PO (19:40)
[2018-01-22] MEDS ORDERED: CORGARD40 MG PO (19:41)
[2018-01-22] MEDS ORDERED: METFORMIN HCL500 MG PO (19:41)
[2018-01-23 01:53] VITALS: BP 136/71
[2018-01-23 04:11] LABS: APPEARANCE CLEAR ((CLEAR)); BILIRUBIN NEGATIVE; BLOOD NEGATIVE; COLOR YELLOW ((YELLOW)); GLUCOSE (STRIP) >=500; KETONES 20; LEUKOCYTES NEGATIVE; NITRITE NEGATIVE; PROTEIN (STRIP) NEGATIVE; SPECIFIC GRAVITY 1.032 (1.000-1.030); UCUL ADDED? NO; UROBILINOGEN 0.2 MG/DL (0.2-1.0)
[2018-01-23 05:48] VITALS: BP 124/75
[2018-01-23 06:15] LABS: BASOPHIL (%) 0 % (0-1); EOSINOPHIL (%) 0 % (0-5); HEMATOCRIT 34.6 % (36.0-46.0); HEMOGLOBIN 11.3 G/DL (11.9-15.5); IMMATURE GRANULOCYTE (%) 1.1 % (0.0-0.7); LYMPHOCYTE (%) 6.4 % (15-42); LYMPHOCYTE COUNT 0.4 K/uL (1.0-2.8); MCH 26.9 PG (29.0-34.0); MCHC 32.7 G/DL (30.0-36.0); MCV 82.4 FL (83-99); MONOCYTE (%) 1.8 % (3-12); MONOCYTE COUNT 0.1 K/uL (0-0.8); NEUTROPHIL (%) 90.7 % (45-76); PLATELET COUNT 66 K/uL (156-360); RBC DIS.WIDTH-CV 14.5 % (11.8-14.6); RBC DIS.WIDTH-SD 43.4 % (39-53); WHITE BLOOD COUNT 5.5 K/uL (4.1-10.2)
[2018-01-23 06:48] LABS: ALBUMIN 2.8 G/DL (3.2-4.8); ALKALINE PHOSPHATASE 73 IU/L (3-129); ALT (GPT) 30 IU/L (3-49); AST (GOT) 22 IU/L (2-34); CHLORIDE 95 MEQ/L (99-109); CREATININE 0.8 MG/DL (0.6-1.3); DIRECT BILIRUBIN 0.6 mg/dL (0.0-0.3); GFR ESTIMATE (CALCULATED) > 59 mL/min/; POTASSIUM 4.6 MEQ/L (3.7-5.4); SODIUM 126 MEQ/L (136-147); TOTAL BILIRUBIN 1.3 MG/DL (0.0-1.0); UREA NITROGEN (BUN) 15 mg/dL (9-23)
[2018-01-23 06:56] LABS: GLUCOSE 577 mg/dL (70-99)
[2018-01-23 07:30] VITALS: BP 118/69
[2018-01-23 13:24] VITALS: BP 113/71
[2018-01-23 13:27] LABS: GLUCOSE 502 mg/dL (70-99)
[2018-01-23 15:34] LABS: CHLORIDE 97 MEQ/L (99-109); CREATININE 0.7 MG/DL (0.6-1.3); GFR ESTIMATE (CALCULATED) > 59 mL/min/; POTASSIUM 3.9 MEQ/L (3.7-5.4); SODIUM 124 MEQ/L (136-147); UREA NITROGEN (BUN) 18 mg/dL (9-23)
[2018-01-23 15:49] LABS: GLUCOSE 528 mg/dL (70-99)
[2018-01-23 16:59] VITALS: BP 103/65
[2018-01-23 20:59] VITALS: BP 111/61
[2018-01-23 22:14] LABS: GLUCOSE 468 mg/dL (70-99)
[2018-01-24] VITALS (7 sets, daily range): BP systolic 87–121; BP diastolic 54–73
[2018-01-24 05:53] LABS: HEMOGLOBIN 10.9 G/DL (11.9-15.5); MCH 27.4 PG (29.0-34.0); MCV 82.9 FL (83-99); PLATELET COUNT 75 K/uL (156-360); RBC DIS.WIDTH-CV 14.6 % (11.8-14.6); RBC DIS.WIDTH-SD 43.8 % (39-53); RED BLOOD COUNT 3.98 M/uL (3.80-5.20); WHITE BLOOD COUNT 5.4 K/uL (4.1-10.2)
[2018-01-24 06:55] LABS: CHLORIDE 103 MEQ/L (99-109); CREATININE 0.6 MG/DL (0.6-1.3); GFR ESTIMATE (CALCULATED) > 59 mL/min/; POTASSIUM 4.6 MEQ/L (3.7-5.4); SODIUM 129 MEQ/L (136-147); UREA NITROGEN (BUN) 21 mg/dL (9-23)
[2018-01-24 07:00] LABS: GLUCOSE 404 mg/dL (70-99)
[2018-01-25 04:15] VITALS: BP 139/87
[2018-01-25 04:44] LABS: CHLORIDE 106 mEq/L (99-109); POTASSIUM 4.7 mEq/L (3.7-5.4); SODIUM 133 mEq/L (136-147)
[2018-01-25 04:50] LABS: CREATININE 0.7 mg/dL (0.6-1.3); GFR ESTIMATE (CALCULATED) > 59 mL/min/
[2018-01-25 04:51] LABS: UREA NITROGEN (BUN) 20 mg/dL (9-23)
[2018-01-25 05:05] LABS: GLUCOSE 197 mg/dL (70-99)
[2018-01-25 07:50] VITALS: BP 122/73
[2018-01-25 11:30] VITALS: BP 100/57
[2018-01-25 16:00] VITALS: BP 97/53
[2018-01-25 20:09] VITALS: BP 98/54
[2018-01-26 00:47] VITALS: BP 102/59
[2018-01-26 04:15] VITALS: BP 110/71
[2018-01-26 05:44] LABS: HEMATOCRIT 37.3 % (36.0-46.0); MCH 26.7 PG (29.0-34.0); MCHC 32.2 G/DL (30.0-36.0); MCV 83.1 FL (83-99); PLATELET COUNT 77 K/uL (156-360); RBC DIS.WIDTH-CV 14.6 % (11.8-14.6); RBC DIS.WIDTH-SD 44.5 % (39-53); RED BLOOD COUNT 4.49 M/uL (3.80-5.20); WHITE BLOOD COUNT 4.3 K/uL (4.1-10.2)
[2018-01-26 06:07] LABS: CHLORIDE 103 MEQ/L (99-109); CREATININE 0.8 MG/DL (0.6-1.3); GFR ESTIMATE (CALCULATED) > 59 mL/min/; POTASSIUM 4.8 MEQ/L (3.7-5.4); SODIUM 128 MEQ/L (136-147); UREA NITROGEN (BUN) 22 mg/dL (9-23)
[2018-01-26 06:08] LABS: GLUCOSE 356 mg/dL (70-99)
[2018-01-26 08:46] VITALS: BP 123/79
[2018-01-26 12:28] VITALS: BP 122/77
[2018-01-26 14:24] LABS: HEMOGLOBIN A1c (GLYCOHEMOGLOB) 8.4 % (Below 5.7)
[2018-01-26 16:52] VITALS: BP 123/76
[2018-01-26 19:51] VITALS: BP 95/55
[2018-01-26 21:24] LABS: GLUCOSE 462 mg/dL (70-99)
[2018-01-27 00:08] VITALS: BP 118/71
[2018-01-27 03:55] VITALS: BP 106/61
[2018-01-27 08:31] VITALS: BP 98/63
[2018-01-27 10:29] LABS: HEMATOCRIT 40.7 % (36.0-46.0); HEMOGLOBIN 13.2 G/DL (11.9-15.5); MCH 26.4 PG (29.0-34.0); MCHC 32.4 G/DL (30.0-36.0); MCV 81.4 FL (83-99); PLATELET COUNT 98 K/uL (156-360); RBC DIS.WIDTH-CV 14.6 % (11.8-14.6); RBC DIS.WIDTH-SD 42.5 % (39-53); WHITE BLOOD COUNT 8.5 K/uL (4.1-10.2)
[2018-01-27 10:52] LABS: ALBUMIN 3.1 G/DL (3.2-4.8); ALKALINE PHOSPHATASE 78 IU/L (3-129); AST (GOT) 16 IU/L (2-34); CHLORIDE 102 MEQ/L (99-109); CREATININE 0.7 MG/DL (0.6-1.3); GFR ESTIMATE (CALCULATED) > 59 mL/min/; GLUCOSE 274 mg/dL (70-99); POTASSIUM 4.5 MEQ/L (3.7-5.4); SODIUM 131 MEQ/L (136-147); TOTAL PROTEIN 6.1 G/DL (6.4-8.3); UREA NITROGEN (BUN) 19 mg/dL (9-23)
[2018-01-27 10:53] LABS: ALT (GPT) 64 IU/L (3-49); TOTAL BILIRUBIN 0.6 MG/DL (0.0-1.0)
[2018-01-27 11:50] VITALS: BP 100/66
[2018-01-27 16:18] VITALS: BP 121/70
[2018-01-27 20:19] VITALS: BP 95/62
[2018-01-27 23:38] LABS: C DIFF TOXIN NEGATIVE (NEGATIVE)
[2018-01-28 00:18] VITALS: BP 111/71
[2018-01-28 06:22] LABS: BASOPHIL (%) 0 % (0-1); EOSINOPHIL (%) 0.2 % (0-5); HEMATOCRIT 37.8 % (36.0-46.0); HEMOGLOBIN 12.5 G/DL (11.9-15.5); IMMATURE GRANULOCYTE (%) 1.5 % (0.0-0.7); LYMPHOCYTE (%) 9.5 % (15-42); LYMPHOCYTE COUNT 0.4 K/uL (1.0-2.8); MCH 27.4 PG (29.0-34.0); MCHC 33.1 G/DL (30.0-36.0); MCV 82.9 FL (83-99); MONOCYTE (%) 4.5 % (3-12); MONOCYTE COUNT 0.2 K/uL (0-0.8); NEUTROPHIL (%) 84.3 % (45-76); NEUTROPHIL COUNT 3.4 K/uL (1.8-6.4); PLATELET COUNT 77 K/uL (156-360); RBC DIS.WIDTH-CV 14.8 % (11.8-14.6); RBC DIS.WIDTH-SD 44.2 % (39-53); RED BLOOD COUNT 4.56 M/uL (3.80-5.20)
[2018-01-28 06:59] LABS: CHLORIDE 103 MEQ/L (99-109); CREATININE 0.7 MG/DL (0.6-1.3); GFR ESTIMATE (CALCULATED) > 59 mL/min/; GLUCOSE 335 mg/dL (70-99); POTASSIUM 4.8 MEQ/L (3.7-5.4); SODIUM 130 MEQ/L (136-147); UREA NITROGEN (BUN) 25 mg/dL (9-23)
[2018-01-28 07:15] VITALS: BP 132/75
[2018-01-28 13:59] LABS: GLUCOSE 422 mg/dL (70-99)
[2018-01-28 16:00] VITALS: BP 96/55
[2018-01-28 23:04] VITALS: BP 117/58
[2018-01-29 05:55] LABS: BASOPHIL (%) 0 % (0-1); EOSINOPHIL (%) 0.2 % (0-5); HEMATOCRIT 39.8 % (36.0-46.0); HEMOGLOBIN 12.9 G/DL (11.9-15.5); IMMATURE GRANULOCYTE (%) 1.2 % (0.0-0.7); LYMPHOCYTE (%) 7.7 % (15-42); LYMPHOCYTE COUNT 0.5 K/uL (1.0-2.8); MCH 26.7 PG (29.0-34.0); MCHC 32.4 G/DL (30.0-36.0); MCV 82.4 FL (83-99); MONOCYTE (%) 4.8 % (3-12); MONOCYTE COUNT 0.3 K/uL (0-0.8); NEUTROPHIL (%) 86.1 % (45-76); PLATELET COUNT 79 K/uL (156-360); RBC DIS.WIDTH-CV 14.8 % (11.8-14.6); RBC DIS.WIDTH-SD 44.1 % (39-53); RED BLOOD COUNT 4.83 M/uL (3.80-5.20); WHITE BLOOD COUNT 5.8 K/uL (4.1-10.2)
[2018-01-29 06:23] LABS: ALBUMIN 2.9 G/DL (3.2-4.8); ALKALINE PHOSPHATASE 77 IU/L (3-129); ALT (GPT) 58 IU/L (3-49); AST (GOT) 16 IU/L (2-34); CHLORIDE 101 MEQ/L (99-109); CREATININE 0.8 MG/DL (0.6-1.3); GFR ESTIMATE (CALCULATED) > 59 mL/min/; GLUCOSE 373 mg/dL (70-99); POTASSIUM 4.9 MEQ/L (3.7-5.4); SODIUM 127 MEQ/L (136-147); TOTAL BILIRUBIN 0.4 MG/DL (0.0-1.0); TOTAL PROTEIN 5.5 G/DL (6.4-8.3); UREA NITROGEN (BUN) 25 mg/dL (9-23)
[2018-01-29 08:04] VITALS: BP 110/72
[2018-01-29 12:28] LABS: CHLORIDE 100 MEQ/L (99-109); POTASSIUM 4.6 MEQ/L (3.7-5.4); SODIUM 129 MEQ/L (136-147)
[2018-01-29 12:29] VITALS: BP 119/70
[2018-01-29 12:47] LABS: CREATININE 0.8 MG/DL (0.6-1.3); GFR ESTIMATE (CALCULATED) > 59 mL/min/; GLUCOSE 474 mg/dL (70-99); UREA NITROGEN (BUN) 23 mg/dL (9-23)
[2018-01-29 14:38] LABS: BICARBONATE 22.2 mEq/L (22-26); CARBOXY HGB 1.9 % (0-5); METHEMOGLOBIN 1.9 % (0-1.5); PCO2 32 mm Hg (35-45); PO2 97 mm Hg (80-100); pH 7.45 (7.35-7.45)
[2018-01-29 14:39] LABS: COMMENTS - BLOOD GASES A+C+; DEVICE ROOM AIR; SITE RR; TOTAL RESP RATE 20 resp/min
[2018-01-29 15:45] VITALS: BP 119/69
[2018-01-29 20:05] VITALS: BP 108/67
[2018-01-30 00:19] VITALS: BP 110/70
[2018-01-30 03:26] VITALS: BP 101/62
[2018-01-30 05:59] LABS: BASOPHIL (%) 0.2 % (0-1); EOSINOPHIL (%) 1.5 % (0-5); EOSINOPHIL COUNT 0.1 K/uL (0-0.3); HEMATOCRIT 41.7 % (36.0-46.0); HEMOGLOBIN 13.5 G/DL (11.9-15.5); IMMATURE GRANULOCYTE (%) 1.3 % (0.0-0.7); LYMPHOCYTE (%) 16.3 % (15-42); LYMPHOCYTE COUNT 0.9 K/uL (1.0-2.8); MCH 26.7 PG (29.0-34.0); MCHC 32.4 G/DL (30.0-36.0); MCV 82.6 FL (83-99); MONOCYTE (%) 7.4 % (3-12); MONOCYTE COUNT 0.4 K/uL (0-0.8); NEUTROPHIL (%) 73.3 % (45-76); PLATELET COUNT 86 K/uL (156-360); RBC DIS.WIDTH-CV 15.2 % (11.8-14.6); RBC DIS.WIDTH-SD 44.4 % (39-53); RED BLOOD COUNT 5.05 M/uL (3.80-5.20); WHITE BLOOD COUNT 5.4 K/uL (4.1-10.2)
[2018-01-30 06:14] LABS: ALKALINE PHOSPHATASE 73 IU/L (3-129); ALT (GPT) 56 IU/L (3-49); AST (GOT) 18 IU/L (2-34); CHLORIDE 104 MEQ/L (99-109); CREATININE 0.7 MG/DL (0.6-1.3); GFR ESTIMATE (CALCULATED) > 59 mL/min/; POTASSIUM 3.8 MEQ/L (3.7-5.4); SODIUM 134 MEQ/L (136-147); TOTAL PROTEIN 5.7 G/DL (6.4-8.3); UREA NITROGEN (BUN) 23 mg/dL (9-23)
[2018-01-30 06:20] LABS: GLUCOSE 218 mg/dL (70-99); TOTAL BILIRUBIN 0.5 MG/DL (0.0-1.0)
[2018-01-30] MEDS ORDERED: NICOTINE PATCH1 EAC1 TD (07:43)
[2018-01-30] MEDS ORDERED: SPIRIVA RESPIMAT4 GM IH (07:43)
[2018-01-30] MEDS ORDERED: LEVOFLOXACIN500 MG PO (07:43)
[2018-01-30] MEDS ORDERED: LEVEMIR100 UNIT/2 SC (07:44)
[2018-01-30] MEDS ORDERED: NOVOLOG 10100 UNITS/ SC (07:44)
[2018-01-30] MEDS ORDERED: THEOPHYLLINE400 MG PO (07:45)
[2018-01-30] MEDS ORDERED: PREDNISONE10 MG PO (07:45)
[2018-01-30] MEDS ORDERED: CALCIUM 500 MG1 EACH PO (07:46)
[2018-01-30] MEDS ORDERED: BUPROPION HCL150 M2 PO (08:00)
[2018-01-30 09:07] VITALS: BP 105/62
[2018-01-30] MEDS ORDERED: LORAZEPAM1 MG PO (13:05)
== END 2018-01-30 13:14 | DRG 194 ==
LOC: EME 16:58 → EDOF 21:43 → 4SOUTH 21:43 → ENRESERV 21:53 → 4SOUTH 01-23 01:40 → ENRESERV 01-29 04:46 → 3EAST 01-29 06:16
PROVIDERS: Emergency Medicine; Family Medicine; Hospitalist
DX: J15.9 Unspecified bacterial pneumonia (principal); J44.0 Chronic obstructive pulmonary disease with (acute) lower respiratory infection; J44.1 Chronic obstructive pulmonary disease with (acute) exacerbation; D61.818 Other pancytopenia; E11.65 Type 2 diabetes mellitus with hyperglycemia; E87.1 Hypo-osmolality and hyponatremia; B18.2 Chronic viral hepatitis C; Z91.19 Patient's noncompliance with other medical treatment and regimen; K70.31 Alcoholic cirrhosis of liver with ascites; K72.90 Hepatic failure, unspecified without coma; K76.6 Portal hypertension; I85.00 Esophageal varices without bleeding; I10 Essential (primary) hypertension; I34.1 Nonrheumatic mitral (valve) prolapse; K21.9 Gastro-esophageal reflux disease without esophagitis; R00.0 Tachycardia, unspecified; F10.21 Alcohol dependence, in remission; F12.90 Cannabis use, unspecified, uncomplicated; M25.572 Pain in left ankle and joints of left foot; F17.210 Nicotine dependence, cigarettes, uncomplicated; F41.1 Generalized anxiety disorder; F43.21 Adjustment disorder with depressed mood; F60.9 Personality disorder, unspecified; Z86.718 Personal history of other venous thrombosis and embolism; Z59.0 Homelessness; Z80.0 Family history of malignant neoplasm of digestive organs; Z81.1 Family history of alcohol abuse and dependence; Z83.3 Family history of diabetes mellitus; Z87.01 Personal history of pneumonia (recurrent)
CPT/HCPCS: 36600; 71046; 71250; 73610; 74176; 80048; 80048 91; 80053; 80076; 80202; 81003; 82140; 82803; 82948; 83036; 83605; 83690; 83735; 83880; 84300; 84484; 84999; 85025; 85027; 85610; 85730; 87040; 87070; 87205; 87449; 87493; 87502; 87641; 93005; 93971; 94640; 94640 76; 94667; 94760; 94799; 97530 GO; 97530 GP; 99202; 99281; 99285; J0692; J1815; J2060; J2543; J2920; J2930; J3370; J7040; J7512; J7644

== ENCOUNTER 2018-02-10 10:22 | Emergency (ER) | payer OTHER ==
[~2018-02-10] VITALS: Ht 167.6 cm; Wt 85.0 kg
[~2018-02-10 10:22] MED LIST changes: +BUPROPION HCL150 M2 PO; +CALCIUM 500 MG1 EACH PO; +CORGARD40 MG PO; +LASIX40 MG PO; +LEVEMIR100 UNIT/2 SC; +LEVOFLOXACIN500 MG PO; +LORAZEPAM1 MG PO; +METFORMIN HCL500 MG PO; +NICOTINE PATCH1 EAC1 TD; +NOVOLOG 10100 UNITS/ SC; +SPIRIVA RESPIMAT4 GM IH; +THEOPHYLLINE400 MG PO; +WELLBUTRIN SR100 MG PO
[2018-02-10 11:03] LABS: INTER. NORMALIZED RATIO 1.2
[2018-02-10 11:06] LABS: PTT 29.8 SEC (25-37)
[2018-02-10 11:07] LABS: ALBUMIN 3.2 g/dL (3.2-4.8)
[2018-02-10 11:08] LABS: CHLORIDE 103 mEq/L (99-109); POTASSIUM 4.9 mEq/L (3.7-5.4); SODIUM 136 mEq/L (136-147)
[2018-02-10 11:09] LABS: HEMATOCRIT 38.2 % (36.0-46.0); HEMOGLOBIN 12.5 G/DL (11.9-15.5); MCHC 32.7 G/DL (30.0-36.0); MCV 85.7 FL (83-99); RBC DIS.WIDTH-CV 16.7 % (11.8-14.6); RBC DIS.WIDTH-SD 51.6 % (39-53); RED BLOOD COUNT 4.46 M/uL (3.80-5.20); WHITE BLOOD COUNT 3.2 K/uL (4.1-10.2)
[2018-02-10 11:10] LABS: GLUCOSE 233 mg/dL (70-99); TOTAL PROTEIN 6.1 g/dL (6.4-8.3)
[2018-02-10 11:12] LABS: TOTAL BILIRUBIN 1.2 mg/dL (0.0-1.0)
[2018-02-10 11:13] LABS: ALKALINE PHOSPHATASE 151 IU/L (3-129)
[2018-02-10 11:14] LABS: GFR ESTIMATE (CALCULATED) > 59 mL/min/
[2018-02-10 11:15] LABS: AST (GOT) 40 IU/L (2-34); UREA NITROGEN (BUN) 10 mg/dL (9-23)
[2018-02-10 11:17] LABS: ALT (GPT) 76 IU/L (3-49)
[2018-02-10 11:39] LABS: PLAT.SUFFICIENCY VERY DECREASED; PLATELET COUNT 41 K/uL (156-360)
[2018-02-10 16:33] LABS: TYPE OF FLUID PARACENTESIS
[2018-02-10 16:59] LABS: APPEARANCE STRAW-SL. HAZY; BODY FLUID RBC'S 1000 /MM^3 (0-100); BODY FLUID WBC'S 148 /MM^3 (0-500)
[2018-02-10 17:13] LABS: BODY FLUID GLUCOSE 184 MG/DL
[2018-02-10 17:30] LABS: BODY FLUID EOSINOPHILS 0 % (0-25); MONONUCLEAR WBC'S 95 %; POLYNUCLEAR WBC'S 5 % (0-25)
[2018-02-10 17:32] LABS: BODY FLUID LDH < 25 IU/L; BODY FLUID PROTEIN < 3.0 G/DL
[2018-02-10 20:25] VITALS: BP 148/98
== END 2018-02-10 20:26 ==
LOC: EME 10:22
PROVIDERS: Emergency Medicine
PROC: 0W9G3ZZ Drainage of Peritoneal Cavity, Percutaneous Approach (ICD-10-PCS; principal; 2018-02-10)
DX: K72.90 Hepatic failure, unspecified without coma (principal); R18.8 Other ascites; D69.6 Thrombocytopenia, unspecified; K74.60 Unspecified cirrhosis of liver; B19.20 Unspecified viral hepatitis C without hepatic coma; I10 Essential (primary) hypertension; E11.9 Type 2 diabetes mellitus without complications; J44.9 Chronic obstructive pulmonary disease, unspecified; I34.1 Nonrheumatic mitral (valve) prolapse; F41.9 Anxiety disorder, unspecified; Z87.891 Personal history of nicotine dependence; Z88.5 Allergy status to narcotic agent
CPT/HCPCS: 49083; 80053; 82945; 83615 91; 84157; 85027; 85610; 85730; 87070; 87075; 87205; 88108; 89051; 99281; 99285; J2270; J2405

== ENCOUNTER 2018-06-05 21:53 | Inpatient (IN) | payer OTHER ==
[~2018-06-05] VITALS: Ht 167.6 cm; Wt 81.7 kg
[2018-06-05 22:28] LABS: HEMATOCRIT 41.7 % (36.0-46.0); HEMOGLOBIN 14.7 G/DL (11.9-15.5); MCH 30.2 PG (29.0-34.0); MCHC 35.3 G/DL (30.0-36.0); MCV 85.8 FL (83-99); PLATELET COUNT 55 K/uL (156-360); RBC DIS.WIDTH-CV 15.5 % (11.8-14.6); RBC DIS.WIDTH-SD 48.4 % (39-53); RED BLOOD COUNT 4.86 M/uL (3.80-5.20); WHITE BLOOD COUNT 7.8 K/uL (4.1-10.2)
[2018-06-05 22:32] LABS: CARBON DIOXIDE (BICARBONATE) 23.7 MEQ/L (20-31)
[2018-06-05 22:35] LABS: CHLORIDE 109 mEq/L (99-109); POTASSIUM 4.2 mEq/L (3.7-5.4); SODIUM 140 mEq/L (136-147)
[2018-06-05 22:37] LABS: GLUCOSE 117 mg/dL (70-99)
[2018-06-05 22:41] LABS: GFR ESTIMATE (CALCULATED) > 59 mL/min/
[2018-06-05 22:42] LABS: UREA NITROGEN (BUN) 19 mg/dL (9-23)
[2018-06-05 22:47] LABS: TROP-I INTERPRETATION NEGATIVE; TROPONIN-I < 0.01 ng/mL (0.0-0.30)
[2018-06-05] MEDS ORDERED: ENULOSE10 GM/15 M PO (23:32)
[2018-06-05] MEDS ORDERED: WELLBUTRIN100 MG PO (23:32)
[2018-06-05] MEDS ORDERED: LASIX40 MG PO (23:33)
[2018-06-05] MEDS ORDERED: DELTASONE20 M1 PO (23:33)
[2018-06-05] MEDS ORDERED: ADVAIR 100/501 DISK IH (23:33)
[2018-06-05] MEDS ORDERED: AZITHROMYCIN250 MG1 PO (23:34)
[2018-06-05] MEDS ORDERED: CHANTIX0.5 MG PO (23:34)
[2018-06-05] MEDS ORDERED: METFORMIN HCL500 MG PO (23:34)
[2018-06-05] MEDS ORDERED: ESTER-C 1,0001 EACH PO (23:35)
[2018-06-06 03:11] VITALS: BP 141/83
[2018-06-06 08:17] VITALS: BP 97/56
[2018-06-06 12:39] VITALS: BP 100/62
[2018-06-06 19:53] VITALS: BP 137/80
[2018-06-06 23:20] VITALS: BP 93/52
[2018-06-07 03:58] VITALS: BP 107/52
[2018-06-07 07:43] VITALS: BP 138/84
[2018-06-07 08:28] LABS: ALBUMIN 3.9 G/DL (3.2-4.8); ALKALINE PHOSPHATASE 48 IU/L (3-129); ALT (GPT) 41 IU/L (3-49); AST (GOT) 11 IU/L (2-34); CHLORIDE 105 MEQ/L (99-109); CREATININE 0.9 MG/DL (0.6-1.3); GFR ESTIMATE (CALCULATED) > 59 mL/min/; SODIUM 133 MEQ/L (136-147); TOTAL BILIRUBIN 0.6 MG/DL (0.0-1.0); TOTAL PROTEIN 5.9 G/DL (6.4-8.3); UREA NITROGEN (BUN) 19 mg/dL (9-23)
[2018-06-07 08:32] LABS: GLUCOSE 318 mg/dL (70-99)
[2018-06-07 15:19] VITALS: BP 134/82
[2018-06-07 23:50] VITALS: BP 105/58
[2018-06-08 07:41] VITALS: BP 121/72
[2018-06-08 16:13] VITALS: BP 122/72
[2018-06-08 23:13] VITALS: BP 123/80
[2018-06-09 04:16] VITALS: BP 119/97
[2018-06-09 07:46] VITALS: BP 136/84
[2018-06-09 15:49] VITALS: BP 136/86
[2018-06-09 23:32] VITALS: BP 132/77
[2018-06-10 08:00] VITALS: BP 131/81
[2018-06-10 10:45] LABS: HEMATOCRIT 38.9 % (36.0-46.0); HEMOGLOBIN 13.4 G/DL (11.9-15.5); MCHC 34.4 G/DL (30.0-36.0); NRBC (%) 0.4 /100 WBC (0-0); RBC DIS.WIDTH-CV 15.3 % (11.8-14.6); RBC DIS.WIDTH-SD 48.4 % (39-53); RED BLOOD COUNT 4.47 M/uL (3.80-5.20); WHITE BLOOD COUNT 5.2 K/uL (4.1-10.2)
[2018-06-10 10:49] LABS: IMM.PLATELET FRACTION 3.3 (1-7); PLATELET COUNT 50 K/uL (156-360)
[2018-06-10 11:45] LABS: ALBUMIN 3.5 G/DL (3.2-4.8); ALKALINE PHOSPHATASE 54 IU/L (3-129); ALT (GPT) 32 IU/L (3-49); AST (GOT) 10 IU/L (2-34); CHLORIDE 103 MEQ/L (99-109); GFR ESTIMATE (CALCULATED) > 59 mL/min/; LIPASE 24 U/L (1.0-51.0); POTASSIUM 4.3 MEQ/L (3.7-5.4); SODIUM 133 MEQ/L (136-147); TOTAL BILIRUBIN 0.5 MG/DL (0.0-1.0); TOTAL PROTEIN 5.7 G/DL (6.4-8.3)
[2018-06-10 11:47] LABS: GLUCOSE 414 mg/dL (70-99); UREA NITROGEN (BUN) 34 mg/dL (9-23)
[2018-06-10 16:00] VITALS: BP 175/95
[2018-06-11 00:51] VITALS: BP 115/65
[2018-06-11 07:43] LABS: CHLORIDE 105 MEQ/L (99-109); GFR ESTIMATE (CALCULATED) > 59 mL/min/; GLUCOSE 400 mg/dL (70-99); POTASSIUM 4.3 MEQ/L (3.7-5.4); SODIUM 135 MEQ/L (136-147); UREA NITROGEN (BUN) 35 mg/dL (9-23)
[2018-06-11 08:45] VITALS: BP 129/76
[2018-06-11 15:46] VITALS: BP 162/97
[2018-06-11 23:56] VITALS: BP 140/82
[2018-06-12 08:17] VITALS: BP 136/80
[2018-06-12 08:56] LABS: HEMATOCRIT 36.7 % (36.0-46.0); HEMOGLOBIN 12.6 G/DL (11.9-15.5); MCH 30.1 PG (29.0-34.0); MCHC 34.3 G/DL (30.0-36.0); MCV 87.6 FL (83-99); PLATELET COUNT 59 K/uL (156-360); RBC DIS.WIDTH-CV 15.7 % (11.8-14.6); RBC DIS.WIDTH-SD 50.1 % (39-53); RED BLOOD COUNT 4.19 M/uL (3.80-5.20); WHITE BLOOD COUNT 4.2 K/uL (4.1-10.2)
[2018-06-12 09:17] LABS: ALBUMIN 4.8 G/DL (3.2-4.8); ALKALINE PHOSPHATASE 58 IU/L (3-129); ALT (GPT) 38 IU/L (3-49); CHLORIDE 104 MEQ/L (99-109); GFR ESTIMATE (CALCULATED) > 59 mL/min/; GLUCOSE 287 mg/dL (70-99); SODIUM 136 MEQ/L (136-147); TOTAL BILIRUBIN 0.6 MG/DL (0.0-1.0); TOTAL PROTEIN 6.5 G/DL (6.4-8.3); UREA NITROGEN (BUN) 28 mg/dL (9-23)
[2018-06-12 09:18] LABS: AST (GOT) 16 IU/L (2-34)
[2018-06-12 16:26] VITALS: BP 132/75
[2018-06-12 23:27] VITALS: BP 118/64
[2018-06-13 07:13] LABS: HEMATOCRIT 33.8 % (36.0-46.0); HEMOGLOBIN 11.4 G/DL (11.9-15.5); MCH 29.6 PG (29.0-34.0); MCHC 33.7 G/DL (30.0-36.0); MCV 87.8 FL (83-99); PLATELET COUNT 52 K/uL (156-360); RBC DIS.WIDTH-CV 15.7 % (11.8-14.6); RBC DIS.WIDTH-SD 49.8 % (39-53); RED BLOOD COUNT 3.85 M/uL (3.80-5.20); WHITE BLOOD COUNT 2.5 K/uL (4.1-10.2)
[2018-06-13 07:35] LABS: ALBUMIN 4.2 G/DL (3.2-4.8); ALKALINE PHOSPHATASE 44 IU/L (3-129); ALT (GPT) 36 IU/L (3-49); AST (GOT) 13 IU/L (2-34); CHLORIDE 104 MEQ/L (99-109); CREATININE 0.9 MG/DL (0.6-1.3); GFR ESTIMATE (CALCULATED) > 59 mL/min/; GLUCOSE 198 mg/dL (70-99); POTASSIUM 3.9 MEQ/L (3.7-5.4); SODIUM 136 MEQ/L (136-147); TOTAL BILIRUBIN 0.6 MG/DL (0.0-1.0); TOTAL PROTEIN 5.6 G/DL (6.4-8.3); UREA NITROGEN (BUN) 29 mg/dL (9-23)
[2018-06-13 08:20] VITALS: BP 136/80
[2018-06-13] MEDS ORDERED: PREDNISONE20 MG PO (10:00)
== END 2018-06-13 11:03 | disposition home or self-care (01) | DRG 191 ==
LOC: EME → EDBD 21:53 → EME 21:53 → 3EAST 23:40 → EDOF 23:40 → ENRESERV 23:57 → 3EAST 06-06 02:42
PROVIDERS: Emergency Medicine; Family Medicine; Internal Medicine; Internal Medicine Gastroenterology
PROC: 0W9G3ZZ Drainage of Peritoneal Cavity, Percutaneous Approach (ICD-10-PCS; principal; 2018-06-12)
DX: J44.1 Chronic obstructive pulmonary disease with (acute) exacerbation (principal); I10 Essential (primary) hypertension; K72.90 Hepatic failure, unspecified without coma; E11.9 Type 2 diabetes mellitus without complications; B18.2 Chronic viral hepatitis C; F17.210 Nicotine dependence, cigarettes, uncomplicated; R18.8 Other ascites; I34.1 Nonrheumatic mitral (valve) prolapse; D69.6 Thrombocytopenia, unspecified; F12.90 Cannabis use, unspecified, uncomplicated; F10.21 Alcohol dependence, in remission; F32.9 Major depressive disorder, single episode, unspecified; K21.9 Gastro-esophageal reflux disease without esophagitis; K70.9 Alcoholic liver disease, unspecified; K70.31 Alcoholic cirrhosis of liver with ascites; Z88.5 Allergy status to narcotic agent; Z88.6 Allergy status to analgesic agent; K76.6 Portal hypertension
CPT/HCPCS: 49083; 71045; 80048; 80053; 82140; 82803; 82948; 83605; 83690; 83880; 84484; 85027; 87040; 93005; 93306; 94640; 94760; 94799; 99281; 99284; J0456; J1815; J1956; J2930; J7512; P9047

== ENCOUNTER 2018-07-08 23:33 | Inpatient (IN) | payer OTHER ==
[~2018-07-08] VITALS: Ht 167.6 cm; Wt 79.5 kg
[~2018-07-08 23:33] MED LIST changes: +ADVAIR 100/501 DISK IH; +AZITHROMYCIN250 MG1 PO; +CHANTIX0.5 MG PO; +DELTASONE20 M1 PO; +ENULOSE10 GM/15 M PO; +WELLBUTRIN100 MG PO
[2018-07-09 00:09] LABS: HEMATOCRIT 39.3 % (36.0-46.0); HEMOGLOBIN 13.7 G/DL (11.9-15.5); MCH 31.1 PG (29.0-34.0); MCHC 34.9 G/DL (30.0-36.0); MCV 89.1 FL (83-99); PLATELET COUNT 81 K/uL (156-360); RED BLOOD COUNT 4.41 M/uL (3.80-5.20); WHITE BLOOD COUNT 6.3 K/uL (4.1-10.2)
[2018-07-09 00:20] LABS: CHLORIDE 97 mEq/L (99-109); POTASSIUM 4.3 mEq/L (3.7-5.4); SODIUM 131 mEq/L (136-147)
[2018-07-09 00:22] LABS: GLUCOSE 64 mg/dL (70-99); TOTAL PROTEIN 6.2 g/dL (6.4-8.3)
[2018-07-09 00:24] LABS: TOTAL BILIRUBIN 3.2 mg/dL (0.0-1.0)
[2018-07-09 00:25] LABS: SERUM ETHYL ALCOHOL 95 mg/dL
[2018-07-09 00:26] LABS: ALKALINE PHOSPHATASE 112 IU/L (3-129); CREATININE 0.9 mg/dL (0.6-1.3); GFR ESTIMATE (CALCULATED) > 59 mL/min/
[2018-07-09 00:27] LABS: AST (GOT) 163 IU/L (2-34); UREA NITROGEN (BUN) 13 mg/dL (9-23)
[2018-07-09 00:29] LABS: ALT (GPT) 135 IU/L (3-49); LIPASE 35 U/L (1.0-51.0)
[2018-07-09 04:02] VITALS: BP 133/77
[2018-07-09 08:13] VITALS: BP 106/69
[2018-07-09] MEDS ORDERED: IPRATR-ALBUTEROL3 ML IH (10:36)
[2018-07-09] MEDS ORDERED: TRESIBA FL100 UNIT/1 SC (10:36)
[2018-07-09] MEDS ORDERED: IBUPROFEN PM C1 EACH PO (10:37)
[2018-07-09 11:23] VITALS: BP 108/62
[2018-07-09 15:25] LABS: BENZODIAZEPINES, URINE SCREEN POSITIVE (200 ng/mL)
[2018-07-09 15:49] LABS: ALBUMIN 3.6 G/DL (3.2-4.8); ALKALINE PHOSPHATASE 95 IU/L (3-129); ALT (GPT) 467 IU/L (3-49); AST (GOT) 902 IU/L (2-34); CHLORIDE 102 MEQ/L (99-109); CREATININE 0.8 MG/DL (0.6-1.3); GFR ESTIMATE (CALCULATED) > 59 mL/min/; POTASSIUM 4.8 MEQ/L (3.7-5.4); SODIUM 131 MEQ/L (136-147); TOTAL BILIRUBIN 3.4 MG/DL (0.0-1.0); TOTAL PROTEIN 5.3 G/DL (6.4-8.3); UREA NITROGEN (BUN) 16 mg/dL (9-23)
[2018-07-09 15:55] LABS: GLUCOSE 215 mg/dL (70-99)
[2018-07-09 16:15] VITALS: BP 105/58
[2018-07-09 17:36] LABS: STOOL OCCULT BLD 1ST SPECIMEN NEGATIVE
[2018-07-09 20:55] VITALS: BP 119/81
[2018-07-10 00:36] VITALS: BP 117/61
[2018-07-10 06:20] LABS: HEMATOCRIT 35.1 % (36.0-46.0); HEMOGLOBIN 12.1 G/DL (11.9-15.5); MCH 30.6 PG (29.0-34.0); MCHC 34.5 G/DL (30.0-36.0); MCV 88.9 FL (83-99); RBC DIS.WIDTH-CV 15.8 % (11.8-14.6); RBC DIS.WIDTH-SD 50.6 % (39-53); RED BLOOD COUNT 3.95 M/uL (3.80-5.20); WHITE BLOOD COUNT 5.7 K/uL (4.1-10.2)
[2018-07-10 06:55] LABS: ALBUMIN 3.4 G/DL (3.2-4.8); ALKALINE PHOSPHATASE 94 IU/L (3-129); ALT (GPT) 430 IU/L (3-49); AST (GOT) 516 IU/L (2-34); CHLORIDE 101 MEQ/L (99-109); CREATININE 0.8 MG/DL (0.6-1.3); GFR ESTIMATE (CALCULATED) > 59 mL/min/; GLUCOSE 282 mg/dL (70-99); POTASSIUM 4.5 MEQ/L (3.7-5.4); SODIUM 130 MEQ/L (136-147); TOTAL PROTEIN 5.3 G/DL (6.4-8.3); UREA NITROGEN (BUN) 19 mg/dL (9-23)
[2018-07-10 07:02] LABS: TOTAL BILIRUBIN 2.3 MG/DL (0.0-1.0)
[2018-07-10 07:13] LABS: IMM.PLATELET FRACTION 5.2 (1-7); PLAT.SUFFICIENCY DECREASED
[2018-07-10 07:14] LABS: PLATELET COUNT 54 K/uL (156-360)
[2018-07-10 08:33] VITALS: BP 106/57
[2018-07-10 12:07] VITALS: BP 121/67
[2018-07-10 15:59] VITALS: BP 118/68
[2018-07-10 20:34] VITALS: BP 93/53
[2018-07-10 23:49] VITALS: BP 96/55
[2018-07-11 06:14] LABS: INTER. NORMALIZED RATIO 1.7
[2018-07-11 06:31] LABS: ALBUMIN 3.3 G/DL (3.2-4.8); ALKALINE PHOSPHATASE 94 IU/L (3-129); ALT (GPT) 344 IU/L (3-49); DIRECT BILIRUBIN 0.7 mg/dL (0.0-0.3)
[2018-07-11 06:38] LABS: AST (GOT) 229 IU/L (2-34); TOTAL BILIRUBIN 1.8 MG/DL (0.0-1.0)
[2018-07-11 08:42] VITALS: BP 112/64
[2018-07-11 11:48] VITALS: BP 102/59
[2018-07-11 16:18] VITALS: BP 108/58
[2018-07-11 19:54] VITALS: BP 107/66
[2018-07-11 23:31] VITALS: BP 93/54
[2018-07-12 03:51] VITALS: BP 97/61
[2018-07-12 06:35] LABS: BASOPHIL (%) 0 % (0-1); EOSINOPHIL (%) 0 % (0-5); HEMATOCRIT 34.2 % (36.0-46.0); HEMOGLOBIN 11.9 G/DL (11.9-15.5); IMMATURE GRANULOCYTE (%) 0.8 % (0.0-0.7); LYMPHOCYTE (%) 6.1 % (15-42); LYMPHOCYTE COUNT 0.2 K/uL (1.0-2.8); MCH 31.6 PG (29.0-34.0); MCHC 34.8 G/DL (30.0-36.0); MCV 90.7 FL (83-99); MONOCYTE (%) 5.3 % (3-12); MONOCYTE COUNT 0.2 K/uL (0-0.8); NEUTROPHIL (%) 87.8 % (45-76); NEUTROPHIL COUNT 3.3 K/uL (1.8-6.4); NRBC (%) 0.8 /100 WBC (0-0); RBC DIS.WIDTH-CV 16.4 % (11.8-14.6); RED BLOOD COUNT 3.77 M/uL (3.80-5.20); WHITE BLOOD COUNT 3.7 K/uL (4.1-10.2)
[2018-07-12 06:45] LABS: ALBUMIN 3.1 G/DL (3.2-4.8); ALKALINE PHOSPHATASE 95 IU/L (3-129); ALT (GPT) 276 IU/L (3-49); CHLORIDE 100 MEQ/L (99-109); CREATININE 0.8 MG/DL (0.6-1.3); GFR ESTIMATE (CALCULATED) > 59 mL/min/; POTASSIUM 4.2 MEQ/L (3.7-5.4); SODIUM 127 MEQ/L (136-147); TOTAL PROTEIN 4.8 G/DL (6.4-8.3); UREA NITROGEN (BUN) 21 mg/dL (9-23)
[2018-07-12 06:46] LABS: AST (GOT) 104 IU/L (2-34); TOTAL BILIRUBIN 1.2 MG/DL (0.0-1.0)
[2018-07-12 06:49] LABS: IMM.PLATELET FRACTION 5.1 (1-7); PLAT.SUFFICIENCY DECREASED
[2018-07-12 06:51] LABS: PLATELET COUNT 33 K/uL (156-360)
[2018-07-12 06:59] LABS: GLUCOSE 396 mg/dL (70-99)
[2018-07-12 07:56] VITALS: BP 101/57
[2018-07-12 11:52] VITALS: BP 107/64
[2018-07-12 15:20] VITALS: BP 111/69
[2018-07-12 19:36] VITALS: BP 107/68
[2018-07-12 23:39] VITALS: BP 103/60
[2018-07-13 04:09] VITALS: BP 93/55
[2018-07-13 06:45] LABS: BASOPHIL (%) 0.1 % (0-1); EOSINOPHIL (%) 0 % (0-5); HEMATOCRIT 39.8 % (36.0-46.0); HEMOGLOBIN 13.5 G/DL (11.9-15.5); IMMATURE GRANULOCYTE (%) 0.6 % (0.0-0.7); LYMPHOCYTE (%) 5.5 % (15-42); LYMPHOCYTE COUNT 0.4 K/uL (1.0-2.8); MCH 31.3 PG (29.0-34.0); MCHC 33.9 G/DL (30.0-36.0); MCV 92.1 FL (83-99); MONOCYTE COUNT 0.4 K/uL (0-0.8); NEUTROPHIL (%) 88.8 % (45-76); NEUTROPHIL COUNT 6.9 K/uL (1.8-6.4); RBC DIS.WIDTH-CV 16.6 % (11.8-14.6); RED BLOOD COUNT 4.32 M/uL (3.80-5.20); WHITE BLOOD COUNT 7.8 K/uL (4.1-10.2)
[2018-07-13 06:54] LABS: ALBUMIN 3.6 G/DL (3.2-4.8); ALKALINE PHOSPHATASE 111 IU/L (3-129); ALT (GPT) 232 IU/L (3-49); AST (GOT) 63 IU/L (2-34); CHLORIDE 101 MEQ/L (99-109); GFR ESTIMATE (CALCULATED) > 59 mL/min/; GLUCOSE 294 mg/dL (70-99); POTASSIUM 4.6 MEQ/L (3.7-5.4); SODIUM 129 MEQ/L (136-147); TOTAL BILIRUBIN 1.3 MG/DL (0.0-1.0); TOTAL PROTEIN 5.3 G/DL (6.4-8.3); UREA NITROGEN (BUN) 27 mg/dL (9-23)
[2018-07-13 06:57] LABS: IMM.PLATELET FRACTION 6.8 (1-7)
[2018-07-13 06:58] LABS: PLATELET COUNT 44 K/uL (156-360)
[2018-07-13 08:22] VITALS: BP 117/72
[2018-07-13 11:49] VITALS: BP 100/62
[2018-07-13 16:31] VITALS: BP 94/57
[2018-07-13 19:31] VITALS: BP 102/62
[2018-07-13 23:10] VITALS: BP 100/66
[2018-07-14 03:38] VITALS: BP 106/67
[2018-07-14 07:17] VITALS: BP 90/58
[2018-07-14 11:34] VITALS: BP 96/65
[2018-07-14 15:16] VITALS: BP 90/62
[2018-07-14 19:43] VITALS: BP 100/54
[2018-07-14 23:14] VITALS: BP 121/77
[2018-07-15 04:27] VITALS: BP 120/55
[2018-07-15 07:06] LABS: HEMATOCRIT 35.8 % (36.0-46.0); HEMOGLOBIN 11.9 G/DL (11.9-15.5); MCH 30.9 PG (29.0-34.0); MCHC 33.2 G/DL (30.0-36.0); RBC DIS.WIDTH-CV 16.9 % (11.8-14.6); RBC DIS.WIDTH-SD 55.9 % (39-53); RED BLOOD COUNT 3.85 M/uL (3.80-5.20); WHITE BLOOD COUNT 3.5 K/uL (4.1-10.2)
[2018-07-15 07:32] LABS: ALBUMIN 3.1 G/DL (3.2-4.8); ALKALINE PHOSPHATASE 99 IU/L (3-129); ALT (GPT) 168 IU/L (3-49); AST (GOT) 37 IU/L (2-34); CHLORIDE 100 MEQ/L (99-109); CREATININE 1.1 MG/DL (0.6-1.3); GFR ESTIMATE (CALCULATED) 55 mL/min/; POTASSIUM 4.7 MEQ/L (3.7-5.4); SODIUM 129 MEQ/L (136-147); TOTAL PROTEIN 4.8 G/DL (6.4-8.3); UREA NITROGEN (BUN) 25 mg/dL (9-23)
[2018-07-15 07:34] LABS: IMM.PLATELET FRACTION 6.7 (1-7); PLAT.SUFFICIENCY DECREASED; PLATELET COUNT 33 K/uL (156-360)
[2018-07-15 07:35] LABS: GLUCOSE 442 mg/dL (70-99)
[2018-07-15 07:36] LABS: TOTAL BILIRUBIN 0.9 MG/DL (0.0-1.0)
[2018-07-15 08:43] VITALS: BP 115/68
[2018-07-15 11:49] VITALS: BP 119/73
[2018-07-15 15:52] VITALS: BP 107/62
[2018-07-15 20:32] VITALS: BP 115/68
[2018-07-16 00:33] VITALS: BP 92/55
[2018-07-16 04:06] VITALS: BP 109/64
[2018-07-16 11:59] VITALS: BP 124/68
[2018-07-16 15:36] VITALS: BP 141/7
[2018-07-16 19:39] VITALS: BP 109/73
[2018-07-16 23:52] VITALS: BP 113/69
[2018-07-18 13:53] LABS: HEMOGLOBIN A1c (GLYCOHEMOGLOB) 7.3 % (Below 5.7)
== END 2018-07-17 09:45 | disposition home health service (06) | DRG 896 ==
LOC: EME → EDBD 23:33 → EME 23:33 → EDOF 07-09 02:32 → 3EAST 07-09 02:32 → ENRESERV 07-09 02:47 → 3EAST 07-09 03:14
PROVIDERS: Emergency Medicine; Family Medicine; Internal Medicine; Internal Medicine Gastroenterology
DX: F10.239 Alcohol dependence with withdrawal, unspecified (principal); I81 Portal vein thrombosis; J44.1 Chronic obstructive pulmonary disease with (acute) exacerbation; F33.9 Major depressive disorder, recurrent, unspecified; E87.2 Acidosis; K76.6 Portal hypertension; I85.10 Secondary esophageal varices without bleeding; R45.851 Suicidal ideations; K70.31 Alcoholic cirrhosis of liver with ascites; K21.9 Gastro-esophageal reflux disease without esophagitis; I10 Essential (primary) hypertension; F43.10 Post-traumatic stress disorder, unspecified; D69.6 Thrombocytopenia, unspecified; E11.9 Type 2 diabetes mellitus without complications; E86.0 Dehydration; F17.210 Nicotine dependence, cigarettes, uncomplicated; I34.1 Nonrheumatic mitral (valve) prolapse; B18.2 Chronic viral hepatitis C; F41.9 Anxiety disorder, unspecified; F43.20 Adjustment disorder, unspecified; K72.90 Hepatic failure, unspecified without coma; Y90.4 Blood alcohol level of 80-99 mg/100 ml; K43.9 Ventral hernia without obstruction or gangrene; F10.229 Alcohol dependence with intoxication, unspecified; K70.11 Alcoholic hepatitis with ascites; K42.9 Umbilical hernia without obstruction or gangrene; Z59.0 Homelessness; Z80.0 Family history of malignant neoplasm of digestive organs; Z82.0 Family history of epilepsy and other diseases of the nervous system; Z82.49 Family history of ischemic heart disease and other diseases of the circulatory system; Z83.3 Family history of diabetes mellitus; Z88.5 Allergy status to narcotic agent; Z79.84 Long term (current) use of oral hypoglycemic drugs; Z79.82 Long term (current) use of aspirin; Z81.8 Family history of other mental and behavioral disorders
CPT/HCPCS: 71045; 76705; 80048; 80053; 80076; 80306 90; 81003; 82140; 82272; 82948; 83036; 83690; 85025; 85027; 85610; 87070; 87205; 94640; 94760; 99281; 99285; G0480; J0456; J1815; J2060; J2920; J2930; J7030; J7042; J7512